=== PATIENT | female | born 1955 | race Caucasian/White ===

== ENCOUNTER → 2016-08-15 | Outpatient (CLI) | payer MEDICAID ==
[~2016-08-15] VITALS: Ht 160 cm; Wt 104.8 kg
[2016-08-15 10:58] LABS: GLUCOSE CSF 53 mg/dL (41-75)
[2016-08-15 11:48] LABS: CSF APPEARANCE CLEAR, COLORLESS (CLEAR); CSF WHITE BLOOD CELL 0 /cu mm (0-10)
== END | disposition home or self-care (01) ==
LOC: RAD 07:20
PROVIDERS: ATTEND Psychiatry & Neurology Neurology
PROC: 0Q903ZX Drainage of Lumbar Vertebra, Percutaneous Approach, Diagnostic (ICD-10-PCS; 2016-08-15)
PROC: 009U3ZX Drainage of Spinal Canal, Percutaneous Approach, Diagnostic (ICD-10-PCS; principal; 2016-08-15 09:00)
DX: G35 Multiple sclerosis (principal)
CPT/HCPCS: 62270; 77003; 82040; 82042; 82784; 82945; 83873; 83916; 84157; 89050